=== PATIENT | male | born 1965 | race Asian ===

== ENCOUNTER 2016-10-16 23:10 | Emergency (ER) | payer OTHER ==
[~2016-10-16] VITALS: Ht 162.6 cm; Wt 84.5 kg
[~2016-10-16 23:10] MED LIST: LISI10TA; METF10002; PIOG15TA13
[2016-10-16] MEDS ORDERED: GLIP5 PO (23:12)
[2016-10-16] MEDS ORDERED: PIOG15TA13 PO (23:12)
[2016-10-16] MEDS ORDERED: METF500T4 PO (23:12)
[2016-10-16] MEDS ORDERED: SODIUM CHLORIDE 0.9% 1,000 ML IV ONE (23:30)
[2016-10-16] MEDS ORDERED: NITROGLYCERIN 2% (1 GM=INCH) PACKET TP ONE (23:30)
[2016-10-16] MEDS ORDERED: ASPIRIN 325 MG TABLET PO ONE (23:30)
[2016-10-16] MEDS ORDERED: NITROGLYCERIN 0.4 MG SUBLINGUAL TABLET #25 SL ONE (23:30)
[2016-10-16 23:33] LABS: BASOPHILS % (AUTO) 1.4 % (0.0-2.0); EOSINOPHILS % (AUTO) 1.9 % (1.0-6.0); LYMPHOCYTES % (AUTO) 50.5 % (22.0-44.0); MEAN CORPUSCULAR HEMOGLOBIN 29.1 pg (26.0-34.0); MEAN CORPUSCULAR HGB CONC 31.8 G/dL (31.0-37.0); MEAN CORPUSCULAR VOLUME 91 fL (80-100); MONOCYTES % (AUTO) 8.6 % (2.0-9.0); NEUTROPHILS # (AUTO) 4.5 K/uL (1.8-7.7); NEUTROPHILS % (AUTO) 37.6 % (40.0-70.0); PLATELET COUNT (AUTO) 283 K/uL (150-450); RED BLOOD CELL COUNT(AUTO) 6.77 MIL/uL (4.50-5.90); RED CELL DISTRIBUTION WIDTH 12.8 % (11.5-14.5); WHITE BLOOD COUNT (AUTO) 11.9 K/uL (4.5-11.0)
[2016-10-16 23:43] LABS: HEMOGLOBIN 19.7 g/dL (13.5-17.5)
[2016-10-16 23:44] LABS: ANION GAP 6 mmol/L (8-16); CALCIUM, TOTAL 8.9 mg/dL (8.8-10.5); CARBON DIOXIDE 29 mmol/L (22-29); CHLORIDE 98 mmol/L (98-107); CREATININE 1.68 mg/dL (0.60-1.30); GLOMERULAR FILTR. RATE CALC 43 mL/min (>60); HEMATOCRIT 61.9 % (41-53); POTASSIUM 3.8 mmol/L (3.5-5.1); SODIUM SERUM 133 mmol/L (136-145); UREA NITROGEN, BLOOD 26 mg/dL (7-18)
[2016-10-16] MEDS ORDERED: NITROGLYCERIN 50 MG/D5% WATER 250 ML IV PRN (23:45)
[2016-10-16] MEDS ORDERED: ONDANSETRON HCL 4 MG/2 ML VIAL IVP ONE (23:45)
[2016-10-16] MEDS ORDERED: MORPHINE SULFATE 2 MG/ML SYRINGE IVP ONE (23:45)
[2016-10-16] MEDS ORDERED: NITROGLYCERIN 50 MG/D5% WATER 250 ML ONE (23:49)
[2016-10-16 23:50] LABS: PROTHROMBIN TIME 10.7 SEC (9.4-11.6)
[2016-10-17 00:10] LABS: ALANINE AMINOTRANSFERASE 83 U/L (12-78); ALBUMIN 2.9 g/dL (3.4-5.0); ASPARTATE AMINOTRANSFERASE 41 U/L (15-37); BILIRUBIN,TOTAL 0.4 mg/dL (0.1-1.0); CREATINE KINASE MB 1.6 ng/mL (0-5); CREATINE KINASE, TOTAL 553 U/L (39-308); TOTAL PROTEIN, SERUM 7.2 g/dL (6.4-8.2)
[2016-10-17 00:11] LABS: B-TYPE NATRIURETIC PEPTIDE 6 pg/mL (0-100)
[2016-10-17 00:12] VITALS: BP 107/61
[2016-10-17 00:20] LABS: LACTIC ACID 3.7 mmol/L (0.4-2.0)
[2016-10-17 01:29] LABS: REFLEX LACTIC ACID? YES YES
== END 2016-10-17 00:27 | disposition short-term general hospital (02) ==
LOC: EMS 23:11
DX: I21.19 ST elevation (STEMI) myocardial infarction involving other coronary artery of inferior wall (principal); I44.2 Atrioventricular block, complete; E11.65 Type 2 diabetes mellitus with hyperglycemia; D75.1 Secondary polycythemia; E11.29 Type 2 diabetes mellitus with other diabetic kidney complication; N28.9 Disorder of kidney and ureter, unspecified
CPT/HCPCS: 36415; 71010; 80053; 82550; 82553; 83605; 83690; 83880; 84484; 85025; 85610; 85730; 93005; 96374; 96375; 99291; G0480; J2270; J2405; J3490; J7030; 82962

== ENCOUNTER 2018-06-28 10:01 | Emergency (ER) | payer OTHER ==
[~2018-06-28] VITALS: Ht 165.1 cm; Wt 86.4 kg
[~2018-06-28 10:01] MED LIST changes: +GLIP5 PO; -LISI10TA; +METF-960 PO; -METF10002; -PIOG15TA13; +PIOG15TA6 PO
[2018-06-28] MEDS ORDERED: CLOP75TA17 PO (10:08)
[2018-06-28] MEDS ORDERED: PERTUSS(ACELL),DIPH,TET VAC/PF 0.5 ML VIAL IM ONE (11:15)
[2018-06-28] MEDS ORDERED: LIDOCAINE 2%/EPI 1:200,000/PF 20 ML VIAL INJ ONE (11:15)
[2018-06-28] MEDS ORDERED: AMOX TR/POT CLAV 875 MG/125 MG TABLET PO ONE (11:15)
[2018-06-28] MEDS ORDERED: SODIUM BICARBONATE 50 MEQ/50 ML VIAL MISC ONE (11:30)
[2018-06-28 13:14] VITALS: BP 138/89
== END 2018-06-28 13:20 | disposition home or self-care (01) ==
LOC: EDUNIT# 10:01 → EMS 10:02
DX: S01.511A Laceration without foreign body of lip, initial encounter (principal); E11.9 Type 2 diabetes mellitus without complications; W54.0XXA Bitten by dog, initial encounter; Y93.89 Activity, other specified; Y92.89 Other specified places as the place of occurrence of the external cause; Y99.8 Other external cause status
CPT/HCPCS: 40650; 90471; 90715; 99284; J3490